=== PATIENT | female | born 1980 | race Two or more races ===

== ENCOUNTER 2020-06-04 12:07 | Emergency (ER) | payer MEDICAID, OTHER ==
[~2020-06-04] VITALS: Ht 167.6 cm; Wt 71.7 kg
[2020-06-04 14:55] VITALS: BP 142/73
[2020-06-04] MEDS ORDERED: METHOCARBAMOL 500 MG TAB PO ONE (16:15)
[2020-06-04] MEDS ORDERED: KETOROLAC TROMETH 60MG/2ML VIAL IM ONE (17:15)
== END 2020-06-04 17:19 | disposition home or self-care (01) ==
LOC: ER 12:07
DX: G43.909 Migraine, unspecified, not intractable, without status migrainosus (principal); M62.838 Other muscle spasm
CPT/HCPCS: 70450; 81002; 81025; 93005; 96372; 99284; J1885